=== PATIENT | female | born 1985 | race Hispanic/Latino ===

== ENCOUNTER 2019-02-02 20:49 | Emergency (ER) | payer SELFPAY ==
[2019-02-02 21:26] LABS: Urine Blood TRACE (NEG); Urine Glucose NEGATIVE (NEG); Urine Protein 1+ (NEG); Urine Specific Gravity 1.025 (1.005-1.030); Urine pH 5.5 (5.0-7.0)
[2019-02-02 21:32] LABS: Urine Mucus 1+ /HPF (NONE SEEN)
[2019-02-02 21:33] LABS: Absolute Lymphocytes (CBC) 1.3 K/uL (0.7-4.9); Absolute Monocytes 0.4 K/uL (0.1-1.3); Absolute Neutrophil 1.5 K/uL (1.8-8.0); Basophils % 0.6 % (0-1.3); Eosinophils % 0.4 % (0-4.4); Hematocrit 35.4 % (36.0-45.0); Lymphocytes % 40.4 % (15.3-44.8); MPV 8.5 fL (7.6-11.3); Monocytes % 11.4 % (3.3-12.3); RBC Red Blood Cell Count 4.36 M/uL (3.86-4.86)
[2019-02-02 21:34] LABS: Urine Bacteria <20 /HPF (<20); Urine RBC NONE SEEN /HPF (NONE SEEN)
[2019-02-02 21:36] LABS: Urine Amorphous Sediment TRACE /HPF (NONE SEEN)
[2019-02-02 21:37] LABS: Urine Culture Reflex Order NOT NEEDED
[2019-02-02 21:44] LABS: ALT/SGPT 226 U/L (12-78); AST/SGOT 140 U/L (15-37); Albumin 3.4 g/dL (3.4-5.0); Alkaline Phosphatase 97 U/L (45-117); BUN Blood Urea Nitrogen 11 mg/dL (7-18); Bicarbonate 26 mmol/L (21-32); Bilirubin Direct 0.1 mg/dL (0-0.2); Bilirubin Total 0.3 mg/dL (0.2-1.0); Glucose Level 118 mg/dL (74-106); Lipase 175 U/L (73-393); Potassium 3.8 mmol/L (3.5-5.1); Protein, Total 6.6 g/dL (6.4-8.2); Sodium Level 141 mmol/L (136-145)
[2019-02-02] MEDS ORDERED: NA CHLORIDE 0.9% 1,000 ML ONE (21:44)
[2019-02-02] MEDS ORDERED: ONDANSETRON 4 MG/2 ML VIAL ONE (21:44)
--- NOTE | 2019-02-03 00:57 | ER ---
Nurse's Notes [facility] Name: Marina Long Age: 33 yrs Sex: Female : 1985 Arrival Date: 02/02/2019 Time: 20:51 Bed 19 Private MD: Diagnosis: Unspecified ovarian cysts;Vomiting, unspecified Presentation: 02/02 20:55 Presenting complaint: Patient states: I have been having abd pain, fatigue, vomiting, la1 chest pain for a few weeks, worse recently. Transition of care: patient was not received from another setting of care. Onset of symptoms was February 02, 2019. Risk Assessment: Do you want to hurt yourself or someone else? Patient reports no desire to harm self or others. Initial Sepsis Screen: Does the patient meet any 2 criteria? No. Patient's initial sepsis screen is negative. Does the patient have a suspected source of infection? No. Patient's initial sepsis screen is negative. Care prior to arrival: None. 20:55 Method Of Arrival: Ambulatory la1 20:55 Acuity: ELADIO 3 la1 Historical: - Allergies: 20:56 No Known Allergies; la1 - PMHx: 20:56 None; la1 - PSHx: 20:56 ; Appendectomy; Cholecystectomy; la1 - Immunization history:: Adult Immunizations up to date. - Social history:: Smoking status: Patient uses tobacco products, smokes one pack cigarettes per day. - Ebola Screening: : No symptoms or risks identified at this time. - Family history:: not pertinent. - Hospitalizations: : No recent hospitalization is reported. Screenin:57 Abuse screen: Denies threats or abuse. Denies injuries from another. Nutritional ed1 screening: No deficits noted. Tuberculosis screening: No symptoms or risk factors identified. Fall Risk None identified. Assessment: 20:57 General: Appears in no apparent distress. Behavior is calm, cooperative. Pain: ed1 Complains of pain in chest and abdomen Pain currently is 10 out of 10 on a pain scale. Quality of pain is described as aching, Pain began 2-3 days ago. Neuro: Level of Consciousness is awake, alert, obeys commands, Oriented to person, place, time, situation, Reports weakness Denies blurred vision dizziness, headache. Cardiovascular: Reports chest pain, nausea, Heart tones S1 S2 present. Respiratory: Airway is patent Respiratory effort is even, unlabored, Respiratory pattern is regular, symmetrical, Breath sounds are clear bilaterally. GI: Abdomen is non-distended, Bowel sounds present X 4 quads. Abd is soft and non tender X 4 quads. Reports nausea, Patient currently denies diarrhea, vomiting. : No signs and/or symptoms were reported regarding the genitourinary system. EENT: No signs and/or symptoms were reported regarding the EENT system. Oral mucosa is moist. Derm: Skin is intact, is healthy with good turgor, Skin is dry, Skin is normal, Skin temperature is warm. Musculoskeletal: Circulation, motion, and sensation intact. Range of motion: intact in all extremities. 21:58 Reassessment: Patient appears in no apparent distress at this time. No changes from ed1 previously documented assessment. Patient and/or family updated on plan of care and expected duration. Pain level reassessed. Patient is alert, oriented x 3, equal unlabored respirations, skin warm/dry/pink. Patient states symptoms have not improved. 23:51 Reassessment: Patient appears in no apparent distress at this time. Patient and/or ed1 family updated on plan of care and expected duration. Pain level reassessed. Patient is alert, oriented x 3, equal unlabored respirations, skin warm/dry/pink. Pt returned from CT. 02/03 01:03 Reassessment: Patient appears in no apparent distress at this time. Patient and/or ed1 family updated on plan of care and expected duration. Pain level reassessed. Patient is alert, oriented x 3, equal unlabored respirations, skin warm/dry/pink. Patient states feeling better. Patient states symptoms have improved. Vital Signs: 02/02 20:56 BP 114 / 61; Pulse 126; Resp 18; Temp 98.4; Pulse Ox 98% on R/A; Weight 58.97 kg; la1 Height 5 ft. 6 in. (167.64 cm); Pain 10/10; 21:58 BP 109 / 72; Pulse 114; Resp 20; Pulse Ox 99% on R/A; Pain 10/10; ed1 23:51 BP 114 / 76; Pulse 91; Resp 17; Pulse Ox 100% on R/A; Pain 6/10; ed1 02/03 01:03 BP 119 / 74; Pulse 78; Resp 18; Temp 97.1(O); Pulse Ox 99% on R/A; Pain 4/10; ed1 02/02 20:56 Body Mass Index 20.98 (58.97 kg, 167.64 cm) la1 ED Course: 02/02 20:51 Patient arrived in ED. do 20:56 Triage completed. la1 20:57 Aubrey Laura MD is Attending Physician. rn 20:57 Arm band placed on left wrist. la1 20:57 Patient has correct armband on for positive identification. Placed in gown. Bed in low ed1 position. Call light in reach. Adult w/ patient. Pulse ox on. NIBP on. Warm blanket given. 21:10 Tigist Vitale, JAY is Primary Nurse. ed1 21:29 Initial lab(s) drawn, by me, sent to lab. Urine collected: clean catch specimen, clear, ed1 EKG done, by ED staff, reviewed by Aubrey Laura MD. Inserted saline lock: 22 gauge in right antecubital area, using aseptic technique. Blood collected. 23:[address] via wheelchair. sw 23:47 CT completed. Patient tolerated procedure well. Patient moved back from CT. sw 23:54 CT Abd/Pelvis - W/Contrast In Process Unspecified. EDMS 02/03 01:03 No provider procedures requiring assistance completed. IV discontinued, intact, ed1 bleeding controlled, No redness/swelling at site. Pressure dressing applied. Administered Medications: 02/02 21:36 Drug: Zofran 4 mg Route: IVP; Site: right antecubital; ed1 23:52 Follow up: Response: No adverse reaction; Nausea is decreased ed1 21:36 Drug: NS 0.9% 1000 ml Route: IV; Rate: 1000 ml; Site: right antecubital; ed1 22:15 Follow up: IV Status: Completed infusion; IV Intake: 1000ml ed1 Point of Care Testing: Blood Glucose: :29 Blood Glucose: 116 mg/dL; ed1 Ranges: Intake: 22:15 IV: 1000ml; Total: 1000ml. ed1 Outcome: 02/03 00:56 Discharge ordered by . rn 01:03 Discharged to home ambulatory, with significant other. ed1 01:03 Condition: good 01:03 Discharge instructions given to patient, Instructed on discharge instructions, follow up and referral plans. medication usage, Demonstrated understanding of instructions, follow-up care, medications, Prescriptions given X 2. 01:04 Patient left the ED. ed1 Signatures: Dispatcher [employer] EDMS Aubrey Laura MD MD rn Riggs, Erika, RN RN ed1 Jere Pryor RN RN la1 Susanna Parra Danielle do
--- NOTE | 2019-02-03 00:58 | EDPHYS ---
Physician Documentation [facility] Name: Marina Long Age: 33 yrs Sex: Female : 1985 Arrival Date: 02/02/2019 Time: 20:51 Bed 19 Private MD: ED Physician Aubrey Laura HPI: 02/02 21:18 This 33 yrs old Female presents to ER via Ambulatory with complaints of rn Vomiting, Abdominal Pain, Chest Pain. 21:18 The patient presents to the emergency department with nausea, vomiting. Onset: The rn symptoms/episode began/occurred 4 week(s) ago. Possible causes: unknown. The symptoms are aggravated by nothing. The symptoms are alleviated by nothing. Severity of symptoms: At their worst the symptoms were mild in the emergency department the symptoms are unchanged. The patient has not experienced similar symptoms in the past. Reports 4 weeks of nausea/vomiting, + lower abd pain, has had gallbladder and appendix removed, has tubes tied, no diarrhea, no fever, + dehydration and not keeping food/fluid down, reports some weight loss. . Historical: - Allergies: 20:56 No Known Allergies; la1 - PMHx: 20:56 None; la1 - PSHx: 20:56 ; Appendectomy; Cholecystectomy; la1 - Immunization history:: Adult Immunizations up to date. - Social history:: Smoking status: Patient uses tobacco products, smokes one pack cigarettes per day. - Ebola Screening: : No symptoms or risks identified at this time. - Family history:: not pertinent. - Hospitalizations: : No recent hospitalization is reported. ROS: 21:18 Constitutional: Negative for fever, chills, and weight loss, Eyes: Negative for injury, rn pain, redness, and discharge, Neck: Negative for injury, pain, and swelling, Cardiovascular: Negative for palpitations, and edema, Respiratory: Negative for shortness of breath, cough, wheezing, and pleuritic chest pain, Abdomen/GI: Negative for diarrhea, and constipation Back: Negative for injury and pain, MS/Extremity: Negative for injury and deformity, Skin: Negative for injury, rash, and discoloration, Neuro: Negative for headache, numbness, tingling, and seizure, + generalized weakness Exam: 21:18 Constitutional: This is a well developed, well nourished patient who is awake, alert, rn and in no acute distress. Head/Face: Normocephalic, atraumatic. Eyes: Pupils equal round and reactive to light, extra-ocular motions intact. Lids and lashes normal. Conjunctiva and sclera are non-icteric and not injected. Cornea within normal limits. Periorbital areas with no swelling, redness, or edema. ENT: dry MM Cardiovascular: tachycardic, regular, no murmur Respiratory: No increased work of breathing, no retractions or nasal flaring. Abdomen/GI: soft, mild suprapubic tenderness, no rebound MS/ Extremity: Pulses equal, no cyanosis. Neurovascular intact. Full, normal range of motion. Equal circumference. Neuro: Awake and alert, GCS 15, oriented to person, place, time, and situation. Cranial nerves II-XII grossly intact. Motor strength 5/5 in all extremities. Sensory grossly intact. Cerebellar exam normal. Normal gait. Vital Signs: 20:56 BP 114 / 61; Pulse 126; Resp 18; Temp 98.4; Pulse Ox 98% on R/A; Weight 58.97 kg; la1 Height 5 ft. 6 in. (167.64 cm); Pain 10/10; 21:58 BP 109 / 72; Pulse 114; Resp 20; Pulse Ox 99% on R/A; Pain 10/10; ed1 23:51 BP 114 / 76; Pulse 91; Resp 17; Pulse Ox 100% on R/A; Pain 6/10; ed1 02/03 01:03 BP 119 / 74; Pulse 78; Resp 18; Temp 97.1(O); Pulse Ox 99% on R/A; Pain 4/10; ed1 02/02 20:56 Body Mass Index 20.98 (58.97 kg, 167.64 cm) la1 MDM: 02/02 20:57 Patient medically screened. rn 02/03 00:55 Differential diagnosis: Nonspecific abd pain, gastritis, diverticulitis, viral rn gastroenteritis, gastroenteritis, ovarian cyst. Data reviewed: vital signs, nurses notes, lab test result(s), radiologic studies, CT scan, and as a result, I will discharge patient. Counseling: I had a detailed discussion with the patient and/or guardian regarding: the historical points, exam findings, and any diagnostic results supporting the discharge/admit diagnosis, lab results, radiology results, the need for outpatient follow up, to return to the emergency department if symptoms worsen or persist or if there are any questions or concerns that arise at home. Response to treatment: the patient's symptoms have mildly improved after treatment, and as a result, I will discharge patient. Special discussion: Based on the patient's Hx, exam, and Dx evaluation, there is no indication for emergent surgery or inpatient Tx. It is understood by the patient/guardian that if the Sx's persist or worsen they need to return immediately for re-evaluation. I discussed with the patient/guardian in detail that at this point there is no indication for admission to the hospital. It is understood, however, that if the symptoms persist or worsen the patient needs to return immediately for re-evaluation. 02/02 21: Order name: Basic Metabolic Panel; Complete Time: 21:46 02/02 21:09 Order name: CBC with Diff; Complete Time: 21:46 02/02 21:09 Order name: Hepatic Function; Complete Time: 21:46 02/02 21:09 Order name: Lipase; Complete Time: 21:46 02/02 21:09 Order name: Urine Microscopic Only; Complete Time: 21:46 02/02 21:23 Order name: Urine Dipstick--Ancillary (enter results); Complete Time: 21:46 cm6 02/02 21:09 Order name: IV Saline Lock; Complete Time: 21:20 02/02 21:09 Order name: Labs collected and sent; Complete Time: 21: 02/02 21:09 Order name: Urine Test (obtain specimen); Complete Time: 21: 02/02 21:09 Order name: CT Abd/Pelvis - W/Contrast 02/02 21:09 Order name: EKG; Complete Time: 21: 02/02 21:23 Order name: Urine --Ancillary (enter results); Complete Time: 21:46 cm6 02/02 21:09 Order name: Urine Dipstick-Ancillary (obtain specimen); Complete Time: 21: 02/02 21:09 Order name: Glucose Level; Complete Time: 21:29 02/02 21:09 Order name: EKG - Nurse/Tech; Complete Time: 21:29 rn Administered Medications: 02/02 21:36 Drug: Zofran 4 mg Route: IVP; Site: right antecubital; ed1 23:52 Follow up: Response: No adverse reaction; Nausea is decreased ed1 21:36 Drug: NS 0.9% 1000 ml Route: IV; Rate: 1000 ml; Site: right antecubital; ed1 22:15 Follow up: IV Status: Completed infusion; IV Intake: 1000ml ed1 Point of Care Testing: Blood Glucose: 21:29 Blood Glucose: 116 mg/dL; ed1 Ranges: Critical Glucose Levels:Adult <50 mg/dl or >400 mg/dl <40 mg/dl or >180 mg/dl Disposition: 02/03/19 00:56 Discharged to Home. Impression: Unspecified ovarian cysts, Vomiting, unspecified. - Condition is Stable. - Discharge Instructions: Ovarian Cyst, Vomiting, Adult. - Prescriptions for Zofran ODT 4 mg Oral tablet,disintegrating - place 1 tablet by TRANSLINGUAL route every 8 hours; 20 tablet. Diclofenac Sodium 75 mg Oral Tablet, Delayed Release (E.C.) - take 1 tablet by ORAL route 2 times per day; 20 tablet. - Medication Reconciliation Form, Thank You Letter, Antibiotic Education, Prescription Opioid Use form. - Family Work Release (02/03/19 01:05). ed1 - Follow up: Private Physician; When: As needed; Reason: Recheck today's complaints, Re-evaluation by your physician. - Problem is new. - Symptoms have improved. Signatures: Dispatcher [employer] EDMS Aubrey Laura MD MD rn Riggs, Erika, RN RN ed1 Jere Pryor RN RN la1 Corrections: (The following items were deleted from the chart) 02/03 01:04 00:56 02/03/2019 00:56 Discharged to Home. Impression: Unspecified ovarian cysts; ed1 Vomiting, unspecified. Condition is Stable. Forms are Medication Reconciliation Form, Thank You Letter, Antibiotic Education, Prescription Opioid Use. Follow up: Private Physician; When: As needed; Reason: Recheck today's complaints, Re-evaluation by your physician. Problem is new. Symptoms have improved. rn
--- NOTE | 2019-02-04 05:55 | EKG ---
Test Date: 2019-02-02 Test Time: 21:26:21 Paradichlorobenzene Tender: CARMEN MEASUREMENT RESULTS: Intervals: Rate: 105 AR: 124 QRSD: 78 QT: 364 QTc: 481 [place]: P: 53 AR: 124 QRS: 89 T: 52 INTERPRETIVE STATEMENTS: Sinus tachycardia Otherwise normal ECG No previous ECG available for comparison Electronically Signed On 02-04-19 05:54:09 CDT by Bronson Garcia
--- NOTE | 2019-02-04 12:21 | RAD REPORT ---
EXAM DESCRIPTION: CT - Abdomen Pelvis W Contrast - 02/03/2019 12:26 am CLINICAL HISTORY: 33-year-old female with vomiting for two weeks with weight loss, abdominal and [place]. COMPARISON: None. TECHNIQUE: CT of the abdomen and pelvis was performed following intravenous administration of contra st. Oral contrast was administered. Multiplanar reformatted images were provided. This exam was perfo rmed according to our departmental dose optimization program which includes use of automated exposure control, adjustment of the mA and/or kV according to patient size and/or use of iterative reconstruc tion technique. FINDINGS: Chest: Evaluation through the lung bases reveals no focal opacity, pleural effusion or pne umothorax. Heart size is within normal limits. No pericardial effusion. Abdomen and pelvis: The liver, pancreas, spleen, bilateral kidneys and bilateral adrenal glands are w ithin normal limits. Surgical clips at the level of the gallbladder fossa status post cholecystectomy . The vessels are patent and normal in caliber. No abdominopelvic lymph nodes are noted to be pathologically enlarged by CT measurement criteria. The large bowel is within normal limits without abnormal bowel wall thickness or bowel dilation. Nons pecific thickening of the wall of the terminal ileum versus incomplete distention raising the possibi lity of inflammatory bowel disease in the correct clinical setting. No free air. No organizing abdominopelvic fluid collections. The appendix is not identified. Small volume of slightly high density free fluid present within the dependent pelvis may be physiolog ic in a patient this age. Rim-enhancing and hypoattenuating structure is identified within the region of the LEFT adnexa suggestive of an adnexal cyst measuring 3.4 cm with slightly higher than expected simple fluid contents raising the question of a hemorrhagic cyst. Ruptured hemorrhagic cyst may be c onsidered in the differential. The osseous structures are within normal limits. IMPRESSION: 1. No specific acute intra-abdominal findings are noted to suggest etiology of the patie nt's abdominal pain. 2. Slightly high density free fluid within the dependent pelvis and cystic structure within the regio n of the LEFT adnexa suggesting hemorrhagic cyst and raising the possibility of cyst rupture. 3. Nonspecific thickening of the wall of the terminal ileum versus incomplete distention raising the possibility of inflammatory bowel disease in the correct clinical setting. Electronically signed by: Adry Motta MD 02/03/2019 12:19 AM CDT Due to temporary technical issues with the PACS/Fluency reporting system, reports are being signed by the in house radiologist as a courtesy to ensure prompt reporting. The interpreting radiologist is f ully responsible for the content of the report.
== END 2019-02-03 01:04 | disposition home or self-care (01) ==
LOC: ER 20:49
DX: N83.209 Unspecified ovarian cyst, unspecified side (principal); F17.210 Nicotine dependence, cigarettes, uncomplicated
CPT/HCPCS: 36415; 74177; 80048; 80076; 81003; 81015; 81025; 82962; 83690; 85025; 93005; 96361; 96374; 99285; J2405; J7030; Q9967

== ENCOUNTER 2019-07-27 23:42 | Emergency (ER) | payer SELFPAY ==
[2019-07-28 01:23] LABS: Absolute Lymphocytes (CBC) 1.4 K/uL (0.7-4.9); Basophils % 1.2 % (0-1.3); Hematocrit 40.3 % (36.0-45.0); MPV 8.5 fL (7.6-11.3); RBC Red Blood Cell Count 5.07 M/uL (3.86-4.86)
[2019-07-28 01:39] LABS: ALT/SGPT 101 U/L (12-78); AST/SGOT 54 U/L (15-37); Albumin 4.4 g/dL (3.4-5.0); Alkaline Phosphatase 235 U/L (45-117); BUN Blood Urea Nitrogen 14 mg/dL (7-18); Bicarbonate 29 mmol/L (21-32); Bilirubin Direct 0.2 mg/dL (0-0.2); Bilirubin Total 0.6 mg/dL (0.2-1.0); Glucose Level 135 mg/dL (74-106); Lipase 194 U/L (73-393); Sodium Level 131 mmol/L (136-145)
[2019-07-28 01:42] LABS: Potassium 2.8 mmol/L (3.5-5.1)
[2019-07-28] MEDS ORDERED: NA CHLORIDE 0.9% 1,000 ML ONE ×2 (01:48→01:49)
[2019-07-28] MEDS ORDERED: FAMOTIDINE 20 MG/2 ML VIAL IV ONE (01:48)
[2019-07-28] MEDS ORDERED: KCL 20 MEQ/100 mL IVPB 20 MEQ/100 ML BAG IV ONE (01:48)
[2019-07-28] MEDS ORDERED: ONDANSETRON 4 MG/2 ML VIAL ONE (01:48)
[2019-07-28 02:59] LABS: Urine Blood NEGATIVE (NEG); Urine Glucose NEGATIVE (NEG); Urine Protein 2+ (NEG); Urine Specific Gravity >1.030 (1.005-1.030)
[2019-07-28] MEDS ORDERED: POTASSIUM 25 MEQ EFFERV TAB ONE (03:50)
--- NOTE | 2019-07-28 04:14 | ER ---
Nurse's Notes [facility] Name: Marina Long Age: 34 yrs Sex: Female : 1985 Arrival Date: 07/27/2019 Time: 23:42 Bed 19 Private MD: Diagnosis: Nausea and vomiting;Diarrhea, unspecified;Hypokalemia Presentation: 07/28 00:40 Presenting complaint: Patient states: Reports she had vomiting, abd pain, fever and fc diarrhea x 3 days. Transition of care: patient was not received from another setting of care. Onset of symptoms was July 28, 2019. Risk Assessment: Do you want to hurt yourself or someone else? Patient reports no desire to harm self or others. Initial Sepsis Screen: Does the patient meet any 2 criteria? No. Patient's initial sepsis screen is negative. Does the patient have a suspected source of infection? No. Patient's initial sepsis screen is negative. Care prior to arrival: None. 00:40 Method Of Arrival: Ambulatory fc 00:40 Acuity: ELADIO 3 fc Triage Assessment: 00:43 General: Appears in no apparent distress. Behavior is calm, cooperative, appropriate fc for age. Pain: Complains of pain in abdomen. GI: Reports nausea, vomiting. Historical: - Allergies: 00:43 No Known Allergies; fc - Home Meds: 00:43 None [Active]; fc - PMHx: 00:43 None; fc - PSHx: 00:43 None; fc - Immunization history:: Adult Immunizations up to date. - Social history:: Smoking status: Patient/guardian denies using tobacco. - Ebola Screening: : No symptoms or risks identified at this time. Screenin:43 Abuse screen: Denies threats or abuse. Nutritional screening: No deficits noted. fc Tuberculosis screening: No symptoms or risk factors identified. Assessment: 01:05 General: Appears uncomfortable, Behavior is appropriate for age. Pain: Complains of ea pain in right upper quadrant and left upper quadrant. Neuro: Level of Consciousness is awake, alert, obeys commands, Oriented to person, place, time, situation. Cardiovascular: Patient's skin is warm and dry. Respiratory: Airway is patent Respiratory effort is even, unlabored, Respiratory pattern is regular, symmetrical. GI: Abdomen is flat, non-distended, Bowel sounds present X 4 quads. Derm: Skin is pink, warm \T\ dry. Musculoskeletal: Circulation, motion, and sensation intact. 03:28 Reassessment: Patient and/or family updated on plan of care and expected duration. Pain ea level reassessed. Patient is alert, oriented x 3, equal unlabored respirations, skin warm/dry/pink. Patient states feeling better. Patient states symptoms have improved. 04:34 Reassessment: Patient and/or family updated on plan of care and expected duration. Pain ea level reassessed. Patient is alert, oriented x 3, equal unlabored respirations, skin warm/dry/pink. Discharge instruction given to patient, verbalized the understanding of instruction. Pt left ED ambulatory accompanied by Patient states feeling better. Patient states symptoms have improved. Vital Signs: 00:42 BP 156 / 96; Pulse 120; Resp 18; Temp 98.7; Pulse Ox 99% ; Weight 63.5 kg; Height 5 ft. fc 6 in. (167.64 cm); Pain 8/10; 02:00 BP 117 / 71; Pulse 92; Resp 18; Pulse Ox 100% on R/A; ea 03:28 BP 133 / 80; Pulse 68; Resp 18; Pulse Ox 98% on R/A; ea 04:15 BP 121 / 80; Pulse 60; Resp 18; Temp 98; Pulse Ox 100% ; ea 00:42 Body Mass Index 22.60 (63.50 kg, 167.64 cm) ED Course: 10 23:42 Patient arrived in ED. ds1 1006 00:42 Triage completed. fc 00:43 Arm band placed on right wrist. Patient placed in waiting room. fc 01:05 Cayla Carvajal, JAY is Primary Nurse. ea 01:05 Hal Sher PA is PHCP. cp 01:05 Lizandro Zuniga MD is Attending Physician. cp 01:06 Patient has correct armband on for positive identification. Bed in low position. Call ea light in reach. Side rails up X2. 01:09 Inserted saline lock: 22 gauge in right antecubital area, using aseptic technique. mt Blood collected. 03:12 CT Abd/Pelvis - IV Contrast Only In Process Unspecified. EDMS 04:35 No provider procedures requiring assistance completed. IV discontinued, intact, ea bleeding controlled, No redness/swelling at site. Pressure dressing applied. Administered Medications: 02:00 Drug: Zofran 4 mg Route: IVP; Site: right antecubital; ea 03:09 Follow up: Response: No adverse reaction; Nausea is decreased ea 02:00 Drug: Potassium Chloride 20 mEq Route: IV; Rate: calculated rate; Site: right ea antecubital; 04:36 Follow up: IV Status: Completed infusion ea 02:00 Drug: NS 0.9% 1000 ml Route: IV; Rate: 1 bolus; Site: right antecubital; ea 04:37 Follow up: Response: No adverse reaction; IV Status: Completed infusion; IV Intake: ea 1000ml 02:14 Drug: NS 0.9% 1000 ml Route: IV; Rate: 1 bolus; Site: right antecubital; ea 02:16 Drug: Pepcid 20 mg Route: IVP; Site: right antecubital; ea 03:09 Follow up: Response: No adverse reaction ea 04:14 Drug: Potassium Effervescent Tablet 50 mEq Route: PO; ea 04:36 Follow up: Response: No adverse reaction ea Intake: 04:37 IV: 1000ml; Total: 1000ml. ea Outcome: 04:14 Discharge ordered by MD. cp 04:35 Discharged to home ambulatory, with family. ea 04:35 Condition: stable 04:35 Discharge instructions given to patient, Instructed on discharge instructions, follow up and referral plans. medication usage, Demonstrated understanding of instructions, follow-up care, medications, Prescriptions given X 2. 04:36 Patient left the ED. ea Signatures: Dispatcher [employer] EDMS Dorene Medina RN RN fc [place], Demi ds1 Hal Sher PA PA [facility] Cayla Warren RN RN ea
--- NOTE | 2019-07-28 04:14 | EDPHYS ---
Physician Documentation [facility] Name: Marina Long Age: 34 yrs Sex: Female : 1985 Arrival Date: 07/27/2019 Time: 23:42 Bed 19 Private MD: ED Physician Lizandro Zuniga HPI: 07/28 01:30 This 34 yrs old Female presents to ER via Ambulatory with complaints of cp Vomiting. 01:30 The patient presents to the emergency department with nausea, that is moderate, cp vomiting, that is continuous. 01:30 Onset: The symptoms/episode began/occurred 2 day(s) ago. cp 01:30 Possible causes: unknown. Associated signs and symptoms: Pertinent positives: diarrhea, cp fever. 01:30 Severity of symptoms: in the emergency department the symptoms are unchanged despite cp home interventions. Historical: - Allergies: 00:43 No Known Allergies; fc - Home Meds: 00:43 None [Active]; fc - PMHx: 00:43 None; fc - PSHx: 00:43 None; fc - Immunization history:: Adult Immunizations up to date. - Social history:: Smoking status: Patient/guardian denies using tobacco. - Ebola Screening: : No symptoms or risks identified at this time. ROS: 01:35 Constitutional: Positive for poor PO intake, Negative for body aches, chills, fever. cp 01:35 Eyes: Negative for injury, pain, redness, and discharge. cp 01:35 Cardiovascular: Negative for chest pain. cp 01:35 Respiratory: Negative for cough, shortness of breath, wheezing. cp 01:35 Abdomen/GI: Positive for abdominal pain, nausea, vomiting, and diarrhea, Negative for constipation, hematemesis, black/tarry stool, rectal bleeding. 01:35 : Negative for urinary symptoms, vaginal bleeding. 01:35 Skin: Negative for rash. 01:35 Neuro: Negative for altered mental status, headache, weakness. 01:35 All other systems are negative. Exam: 01:45 Constitutional: The patient appears in no acute distress, alert, awake, non-toxic, well cp developed, well nourished. 01:45 Head/Face: Normocephalic, atraumatic. cp 01:45 Eyes: Periorbital structures: appear normal, Conjunctiva: normal, no exudate, no injection, Sclera: no appreciated abnormality, Lids and lashes: appear normal, bilaterally. 01:45 ENT: External ear(s): are unremarkable, Nose: is normal, Mouth: Lips: moist, Oral mucosa: pink and intact, moist, Posterior pharynx: is normal, airway is patent, no erythema, no exudate. 01:45 Chest/axilla: Inspection: normal, Palpation: is normal, no crepitus, no tenderness. 01:45 Cardiovascular: Rate: tachycardic, Rhythm: regular. 01:45 Respiratory: the patient does not display signs of respiratory distress, Respirations: normal, no use of accessory muscles, no retractions, no splinting, no tachypnea, labored breathing, is not present, Breath sounds: are clear throughout, no decreased breath sounds, no stridor, no wheezing. 01:45 Abdomen/GI: Inspection: abdomen appears normal, Bowel sounds: active, all quadrants, Palpation: soft, in all quadrants, mild abdominal tenderness, in all quadrants, rebound tenderness, is not appreciated, involuntary guarding, is not appreciated. 01:45 Back: pain, is absent, ROM is normal. 03:06 ECG was reviewed by the Attending Physician. cp 04:12 ECG was reviewed by the Attending Physician. cp Vital Signs: 00:42 BP 156 / 96; Pulse 120; Resp 18; Temp 98.7; Pulse Ox 99% ; Weight 63.5 kg; Height 5 ft. fc 6 in. (167.64 cm); Pain 8/10; 02:00 BP 117 / 71; Pulse 92; Resp 18; Pulse Ox 100% on R/A; ea 03:28 BP 133 / 80; Pulse 68; Resp 18; Pulse Ox 98% on R/A; ea 04:15 BP 121 / 80; Pulse 60; Resp 18; Temp 98; Pulse Ox 100% ; ea 00:42 Body Mass Index 22.60 (63.50 kg, 167.64 cm) fc MDM: 01:14 Patient medically screened. cp 01:30 Differential diagnosis: gastritis, viral gastroenteritis, gastroenteritis, dehydration, cp electrolyte abnormality. 04:00 Data reviewed: vital signs, nurses notes, lab test result(s), radiologic studies, CT cp scan. 04:14 Counseling: I had a detailed discussion with the patient and/or guardian regarding: the cp historical points, exam findings, and any diagnostic results supporting the discharge/admit diagnosis, lab results, radiology results. 04:14 Response to treatment: the patient's symptoms have markedly improved after treatment, cp patient is well hydrated. VSS. Nausea markedly improved and vomiting resolved. Will discharge to home for continued monitoring. 07/28 01:05 Order name: Basic Metabolic Panel; Complete Time: 01:44 ea 07/28 01:44 Interpretation: Normal except: NA 131; K 2.8; CL 91; GLUC 135; CRE 0.52. 07/28 01:05 Order name: CBC with Diff; Complete Time: 01:31 ea 07/28 01:31 Interpretation: Normal except: WBC 3.6; RBC 5.07; MCV 79.5; MN% 14.6; NEUT A 1.6. 07/28 01:05 Order name: Creatinine for Radiology; Complete Time: 01:44 ea 07/28 01:05 Order name: Hepatic Function; Complete Time: 01:44 ea 07/28 03:05 Interpretation: Normal except: AST 54; ALT 101; ALK 235; GLOB 3.6. 07/28 01:05 Order name: Lipase; Complete Time: 01:44 ea 07/28 01:45 Order name: Magnesium; Complete Time: 03:05 07/28 01:32 Order name: CT Abd/Pelvis - IV Contrast Only 07/28 02:39 Order name: Urine Dipstick--Ancillary (enter results); Complete Time: 03:05 [facility] 07/28 03:05 Interpretation: Normal except: UKET 3+; UPROT 2+. 07/28 02:39 Order name: Urine --Ancillary (enter results); Complete Time: 03:05 [facility] 07/28 01:05 Order name: IV Saline Lock; Complete Time: 01:10 ea 07/28 01:05 Order name: Labs collected and sent; Complete Time: 01:10 ea 07/28 01:05 Order name: Urine Dipstick-Ancillary (obtain specimen); Complete Time: 02:30 07/28 01:05 Order name: Urine Test (obtain specimen); Complete Time: 02:30 07/28 01:45 Order name: EKG; Complete Time: 01:45 07/28 01:45 Order name: EKG - Nurse/Tech; Complete Time: 03:09 cp 07/28 03:45 Order name: PO challenge; Complete Time: 04:14 cp EC:06 Rate is 98 beats/min. Rhythm is regular. PA interval is shortened at 88 msec. QRS cp interval is normal. QT interval is normal. T waves are Inverted in leads V2, V3, V4. Interpreted by me. Reviewed by me. 04:12 Rate is 96 beats/min. Rhythm is regular. PA interval is normal. QRS interval is normal. cp QT interval is normal. T waves are Inverted in leads aVR, V2, V3. Interpreted by me. Reviewed by me. Administered Medications: 02:00 Drug: Zofran 4 mg Route: IVP; Site: right antecubital; ea 03:09 Follow up: Response: No adverse reaction; Nausea is decreased ea 02:00 Drug: Potassium Chloride 20 mEq Route: IV; Rate: calculated rate; Site: right ea antecubital; 04:36 Follow up: IV Status: Completed infusion ea 02:00 Drug: NS 0.9% 1000 ml Route: IV; Rate: 1 bolus; Site: right antecubital; ea 04:37 Follow up: Response: No adverse reaction; IV Status: Completed infusion; IV Intake: ea 1000ml 02:14 Drug: NS 0.9% 1000 ml Route: IV; Rate: 1 bolus; Site: right antecubital; ea 02:16 Drug: Pepcid 20 mg Route: IVP; Site: right antecubital; ea 03:09 Follow up: Response: No adverse reaction ea 04:14 Drug: Potassium Effervescent Tablet 50 mEq Route: PO; ea 04:36 Follow up: Response: No adverse reaction ea Disposition: 06:55 Co-signature as Attending Physician, Lizandro Zuniga MD I agree with the assessment and 4 plan of care. Disposition: 07/28/19 04:14 Discharged to Home. Impression: Nausea and vomiting, Diarrhea, unspecified, Hypokalemia. - Condition is Stable. - Discharge Instructions: Food Choices to Help Relieve Diarrhea, Adult, Dehydration, Adult, Diarrhea, Adult, Potassium Content of Foods, Nausea and Vomiting, Adult, Hypokalemia. - Prescriptions for Zofran 4 mg Oral Tablet - take 1 tablet by ORAL route every 12 hours As needed; 20 tablet. Lomotil 2.5- 0.025 mg Oral Tablet - take 1 tablet by ORAL route every 6 hours As needed; 20 tablet. - Medication Reconciliation Form, Thank You Letter, Antibiotic Education, Prescription Opioid Use form. - Follow up: Private Physician; When: 1 - 2 days; Reason: Recheck today's complaints. - Problem is new. - Symptoms have improved. Signatures: Dispatcher [employer] EDMS Dorene Medina RN RN Hal Altman PA PA cp Antunez, Elena, RN RN ea Wadley, Terrence, MD MD tw4 Corrections: (The following items were deleted from the chart) 04:36 04:14 07/28/2019 04:14 Discharged to Home. Impression: Nausea and vomiting; Diarrhea, ea unspecified; Hypokalemia. Condition is Stable. Forms are Medication Reconciliation Form, Thank You Letter, Antibiotic Education, Prescription Opioid Use. Follow up: Private Physician; When: 1 - 2 days; Reason: Recheck today's complaints. Problem is new. Symptoms have improved. cp
[2019-07-28 06:54] VITALS: BP 121/80; TEMP 98; O2SAT 100
--- NOTE | 2019-07-29 09:52 | EKG ---
Test Date: 2019-07-28 Test Time: 04:08:53 Dividing Machine Operator: BRET MEASUREMENT RESULTS: Intervals: Rate: 96 TX: 94 QRSD: 74 QT: 354 QTc: 447 [place]: P: 47 TX: 94 QRS: 84 T: 68 INTERPRETIVE STATEMENTS: Sinus rhythm with sinus arrhythmia with short TX Septal infarct, age undetermined T wave abnormality, consider anterior ischemia Abnormal ECG Compared to ECG 02/02/2019 21:26:21 Short TX interval now present Myocardial infarct finding now present T-wave abnormality now present Possible ischemia now present Sinus tachycardia no longer present Electronically Signed On 07-29-19 09:52:07 CDT by Bronson Garcia
--- NOTE | 2019-07-29 09:52 | EKG ---
Test Date: 2019-07-28 Test Time: 03:02:49 Bibliographic Services Specialist: YULI MEASUREMENT RESULTS: Intervals: Rate: 98 VT: 88 QRSD: 76 QT: 362 QTc: 462 [place]: P: VT: 88 QRS: 87 T: 67 INTERPRETIVE STATEMENTS: Sinus rhythm with short VT Minimal voltage criteria for LVH, may be normal variant Septal infarct, age undetermined T wave abnormality, consider anterior ischemia Abnormal ECG Compared to ECG 02/02/2019 21:26:21 Short VT interval now present Left ventricular hypertrophy now present Myocardial infarct finding now present T-wave abnormality now present Possible ischemia now present Sinus tachycardia no longer present Electronically Signed On 07-29-19 09:52:18 CDT by Bronson Garcia
--- NOTE | 2019-07-30 13:53 | RAD REPORT ---
EXAM DESCRIPTION: CT - Abdomen Pelvis W Contrast - 07/28/2019 3:52 am CLINICAL HISTORY: Abd pain;Nausea / vomiting COMPARISON: None. TECHNIQUE: CT ABDOMEN PELVIS WITH IV CONTRAST on 07/28/2019 1:32 AM CDT This exam was performed according to our departmental dose-optimization program, which includes autom ated exposure control, adjustment of the mA and/or kV according to patient size and/or use of iterati ve reconstruction technique. FINDINGS: Lower lungs are clear. Abdomen: The liver is normal in appearance. There is no biliary dilatation. Cholecystectomy was perfo rmed. The pancreas and spleen are normal in appearance. The adrenal glands and kidneys are unremarkab le. Abdominal aorta is normal in course and caliber without aneurysm. There is no free air. There is no r etroperitoneal adenopathy. Pelvis: There is no bowel obstruction. Urinary bladder is unremarkable. There is no free fluid. Uteru s is normal in size. Appendix is not clearly seen. Skeleton: There are no acute osseous findings. No suspicious bony lesions. IMPRESSION: No definite acute process. Electronically signed by: Chris Walters MD 07/28/2019 3:42 AM CDT Due to temporary technical issues with the PACS/Fluency reporting system, reports are being signed by the in house radiologist as a courtesy to ensure prompt reporting. The interpreting radiologist is f samiraly responsible for the content of the report.
== END 2019-07-28 04:36 | disposition home or self-care (01) ==
LOC: ER 23:42
DX: E87.6 Hypokalemia (principal); R19.7 Diarrhea, unspecified
CPT/HCPCS: 36415; 74177; 80048; 80076; 81003; 81025; 83690; 83735; 85025; 93005; 96365; 96366; 96375; 99284; J2405; J7030; Q9967